=== PATIENT | male | born 1980 | race Caucasian/White ===

== ENCOUNTER 2019-03-08 02:12 | Emergency (ER) | payer SELFPAY ==
[2019-03-08] MEDS: KETOROLAC 60 MG INJ IM (06:46)
[2019-03-08 07:01] LABS: URINE BLOOD (Dip) POC 3+ (NEGATIVE); URINE GLUCOSE (Dip) POC Negative (NEGATIVE); URINE KETONES (Dip) POC Negative (NEGATIVE); URINE LEUKOCYTE EST (Dip) POC Negative (NEGATIVE); URINE NITRITE (Dip) POC Negative (NEGATIVE); URINE TOTAL PROTEIN POC Trace (NEGATIVE)
== END 2019-03-08 07:39 | disposition home or self-care (01) ==
LOC: FTE 02:12
DX: M54.5 Low back pain (principal)
CPT/HCPCS: 81003; 96372; 99284-25